=== PATIENT | male | born 1960 | race Caucasian/White ===

== ENCOUNTER 2025-06-12 14:16 | Outpatient (CLI) | payer BC, SELFPAY ==
--- NOTE | ~2025-06-12 | CT_ITS ---
EXAMINATION: CT IAC/mastoids BI wo con DATE: 06/12/2025 14:34 INDICATION: Cholesteatoma the left mastoid TECHNIQUE: Computed tomography (CT) of the temporal bones was performed without intravenous contrast. The dose-length product was 270.19 mGy-cm. COMPARISON: None FINDINGS: Prominent mucous retention cysts at the bilateral maxillary sinuses. Orbits are normal. Vis ualized portion of the brain are unremarkable. RIGHT TEMPORAL BONE: The external auditory canal, tympanic membrane, ossicles and scutum are normal. The mastoid air cells , middle ear cavity including Prussak's space are clear. The oval window, vestibule, cochlea, semicir cular canals, internal auditory canal, vestibular aqueduct and course of the facial nerve are normal. The carotid canal and jugular bulb are unremarkable. LEFT TEMPORAL BONE: There is a thickened band of soft tissue density measuring 9 mm in diameter 2 mm in maximal thickness at the deep aspect the left external auditory canal which parallels much of the tympanic membrane. T he density contacts a portion of the membrane at the posterior superior aspect opposite from where it engages the malleus. The ossicles and scutum are normal. The mastoid air cells, middle ear cavity in cluding Prussak's space are clear. The oval window, vestibule, cochlea, semicircular canals, internal auditory canal, vestibular aqueduct and course of the facial nerve are normal. The carotid canal and jugular bulb are unremarkable.. IMPRESSION: 1. Thickened soft tissue density band paralleling in the deep left external auditory canal parallelin g much of the tympanic membrane and contacting the membrane opposite from where it engages the malleu s. This would be consistent with provided history of a cholesteatoma with differential also including , cerumen or other debris, keratosis obturans or less likely neoplasm either benign or malignant. Reviewed, dictated and finalized at location A. IMPRESSION: 1. Thickened soft tissue density band paralleling in the deep left external aud itory canal paralleling much of the tympanic membrane and contacting the membra ne opposite from where it engages the malleus. This would be consistent with pr ovided history of a cholesteatoma with differential also including, cerumen or other debris, keratosis obturans or less likely neoplasm either benign or malig nant.
== END 2025-06-12 14:17 | disposition home or self-care (01) ==
PROVIDERS: Visit Provider Otolaryngology
DX: H71.22 Cholesteatoma of mastoid, left ear (principal); H74.22 Discontinuity and dislocation of left ear ossicles
CPT/HCPCS: 70480